=== PATIENT | male | born 2000 | race Caucasian/White ===

== ENCOUNTER 2021-02-18 18:08 | Emergency (ER) | payer OTHER ==
[~2021-02-18] VITALS: Ht 185.4 cm; Wt 115.7 kg
[~2021-02-18 18:08] MED LIST: CLEOCIN HCL150 MG PO; IBUPROFEN 600600 M1 PO; NAPROSYN500 MG PO; NOHOMEMEDICATIONS; NORCO 5-325 TA1 EACH PO
[2021-02-18 18:58] LABS: URINE BLOOD NEGATIVE (Negative); URINE CLARITY CLEAR; URINE COLOR YELLOW; URINE GLUCOSE-RANDOM* NEGATIVE (Negative); URINE KETONES 2+ (Negative); URINE LEUKOCYTES-REFLEX NEGATIVE (Negative); URINE NITRITE-REFLEX NEGATIVE (Negative); URINE PROTEIN (DIPSTICK) NEGATIVE (Negative); URINE SPECIFIC GRAVITY >= 1.030 (1.005-1.035)
[2021-02-18 19:12] LABS: ICTOTEST (BILI CONFIRMATORY) Negative (Negative); URINE BILIRUBIN NEGATIVE (Negative)
[2021-02-18 19:22] LABS: ABSOLUTE NEUTROPHILS 6.3 thou/uL (1.4-8.2); BASOPHILS 0.4 % (0.0-2.0); EOSINOPHILS 0.8 % (0.0-3.0); HEMATOCRIT 48.7 % (42.0-52.0); HEMOGLOBIN 16.7 gm/dL (14.0-18.0); MCH 29.8 pg (26.0-34.0); MCHC 34.3 g/dL (28.0-37.0); MONOCYTES 6.9 % (1.0-8.0); PLATELET COUNT 244 thou/uL (150-400); POLYS 71.9 % (36.0-66.0); RDW 12.7 % (10.5-14.5); WBC 8.7 thou/uL (4.0-11.0)
[2021-02-18 19:33] LABS: CALCIUM 8.9 mg/dL (8.5-10.1); POTASSIUM 3.8 mmol/L (3.5-5.1)
[2021-02-18 19:39] LABS: ALBUMIN 4.3 g/dL (3.4-5.0); TOTAL BILIRUBIN 0.7 mg/dL (0.2-1.0); TOTAL PROTEIN 7.8 g/dL (6.4-8.2)
[2021-02-18] MEDS ORDERED: MECLIZINE HCL25 M1 PO (22:17)
[2021-02-18] MEDS ORDERED: ZOFRAN ODT4 MG PO (22:17)
[2021-02-18 22:28] VITALS: BP 139/68
--- NOTE | 2021-02-19 07:12 | EKG ---
[address] [address] ELECTROCARDIOGRAM REPORT Name: THOR WILHELM Room #: DEP Magnus#: [id number] Admission: 02/18/21 Attend Phys: Discharge: 02/18/21 Date of : [birth year] Report #: [id number] [facility] ED Test Date: 2021-02-18 Test Time: 18:53:43 Pat Name: THOR WILHELM Department: Room: Gender: M Sap Administrator: : 2000 Requested By: Chalino Contreras Order Number: [id number] MD: Julian Nolasco Measurements Intervals [place] Rate: 49 P: 72 ND: 124 QRS: 81 QRSD: 103 T: 29 QT: 415 QTc: 375 Interpretive Statements Sinus bradycardia Atrial premature complexes No previous ECG available for comparison Electronically Signed On 02-19-2021 7:12:02 CDT by Julian Nolasco [email or web address] <ELECTRONICALLY SIGNED> By: Julian Nolasco MD, [facility] 02/19/21 0712 1853 1853 Julian Nolasco MD, FACC /EPI
== END 2021-02-18 22:31 | disposition home or self-care (01) ==
LOC: ER 18:08
PROVIDERS: Physician Assistant
DX: H81.10 Benign paroxysmal vertigo, unspecified ear (principal)

== ENCOUNTER 2021-03-27 19:41 | Emergency (ER) | payer OTHER ==
[~2021-03-27] VITALS: Ht 185.4 cm; Wt 113.4 kg
[~2021-03-27 19:41] MED LIST changes: +MECLIZINE HCL25 M1 PO; +ZOFRAN ODT4 MG PO
[2021-03-27 19:52] VITALS: BP 120/72
[2021-03-27] MEDS ORDERED: NAPROSYN500 MG PO (20:09)
== END 2021-03-27 21:00 | disposition home or self-care (01) ==
LOC: ER 19:41
DX: M65.9 Synovitis and tenosynovitis, unspecified (principal)